=== PATIENT | female | born 1980 | race African-American/Black ===

== ENCOUNTER 2018-07-29 20:30 | Emergency (ER) | payer SELFPAY ==
[~2018-07-29 20:30] MED LIST: ISOVUE-370 76%-LOCM 1 ML ONE
[2018-07-29] MEDS ORDERED: Fentanyl 100 MCG/2 ML VIAL ONE (21:50)
[2018-07-29] MEDS ORDERED: Metoclopramide HCl 10 MG/2 ML VIAL ONE (21:50)
--- NOTE | 2018-07-29 21:57 | CT ---
FEXAM: Abdomen and pelvic CT scan with contrast: HISTORY: Pain COMPARISON: 11/11/2009 FINDINGS: Mild nonspecific pleural-based irregularity Liver: Unremarkable. Gallbladder:Surgically absent Pancreas:No acute inflammation Spleen:Unremarkable. Adrenal glands:Unremarkable. Kidneys:No renal calculus or acute obstruction.No solid or cystic mass. Bowel: Incompletely assessed without enteric contrast. There is prominent distention by ingested debr is of the gastric lumen Urinary Bladder: The urinary bladder is unremarkable. Adenopathy:No adenopathy within the abdomen or pelvis. Free Air: No free air. Ascites: No ascites. Osseous structures: No acute osseous abnormalities. IMPRESSION: No definite evidence of an acute process. The bowel is incompletely evaluated by technique of the exam. There is prominent distention of the ga stric lumen. Correlate clinically to exclude evidence of gastroparesis as source for patient's abdomi nal pain. As necessary, this could be further assessed with nuclear medicine gastric emptying exam.
[2018-07-29] MEDS ORDERED: Acetaminophen 500 MG TAB ONE (22:05)
[2018-07-29 22:36] LABS: #Eosinphils 0.1 thou/uL (0.0-0.7); #Lymphocytes 4.2 thou/uL (1.20-3.40); %Basophils 0.3 % (0.0-1.0); %Eosinophils 0.8 % (0.0-10.0); %Monocytes 8.5 % (0.0-10.0); %Neutrophils 53.4 % (42.0-75.0); Hemoglobin 11.3 g/dL (12.0-16.0); Mean Corpuscular HGB CONC 32.7 g/dL (32.0-36.0); Mean Corpuscular Hemoglobin 25.6 pg (27.0-31.0); Mean Corpuscular Volume 78.4 fL (78.0-98.0); Mean Platelet Volume 8.9 fL (7.4-10.4); Platelet Count 261 thou/uL (130-400); RBC Distribution Width 13.2 % (11.5-14.5); Red Blood Cell (RBC) Count 4.41 mill/uL (4.20-5.40); White Blood Cell (WBC) Count 11.2 thou/uL (4.8-10.8)
[2018-07-29 22:41] LABS: BHCG - Serum Negative (NEGATIVE); Pregs Control Background? CLEAR/WHITE (CLR/WHITE); Pregs Control Bar Appear? YES (CONTROL BAR)
[2018-07-29 22:51] LABS: ALT (SGPT) 21 U/L (8-55); AST (SGOT) 9 U/L (5-34); Albumin 3.4 g/dL (3.5-5.0); Alkaline Phosphatase 97 U/L (40-150); Anion Gap 14 mmol/L (10-20); BUN (Urea Nitrogen) 12 mg/dL (7.0-18.7); Bilirubin, Total 0.2 mg/dL (0.2-1.2); Calc. Creatinine Clearance 0 mL/min (70-130); Calcium 8.2 mg/dL (7.8-10.44); Carbon Dioxide 20 mmol/L (22-29); Chloride 110 mmol/L (98-107); Estimated GFR-MDRD Greater than 90; Globulin 2.6 g/dL (2.4-3.5); Glucose 123 mg/dL (70-105); Lipase 50 U/L (8-78); Potassium 3.7 mmol/L (3.5-5.1); Sodium 140 mmol/L (136-145)
--- NOTE | 2018-08-04 13:53 | EKG ---
Test Reason : CHEST PAIN Blood Pressure : / mmHG Vent. Rate : 132 BPM Atrial Rate : 132 BPM P-R Int : 116 ms QRS Dur : 082 ms QT Int : 320 ms P-R-T Axes : 051 069 027 degrees QTc Int : 474 ms Sinus tachycardia Otherwise normal ECG Confirmed by JOSE LUIS BARON DO ([id number]), newspaper editor EUNICE MORRIS ([id number] on 08/04/2018 1:53:01 PM Referred By: TOD Confirmed By:JOSE LUIS BARON DO
== END 2018-07-29 23:21 | disposition home or self-care (01) ==
LOC: ERS 20:30
DX: R10.9 Unspecified abdominal pain (principal); R07.9 Chest pain, unspecified; G51.0 Bell's palsy; F41.9 Anxiety disorder, unspecified; F32.9 Major depressive disorder, single episode, unspecified; Z79.899 Other long term (current) drug therapy
CPT/HCPCS: 36415; 74177; 80053; 83690; 84484; 84703; 85025; 93005; 96360; J2765; J3010; Q9966